=== PATIENT | male | born 1985 | race Caucasian/White ===

== ENCOUNTER 2022-11-08 11:22 | Outpatient (AMB) | payer BC, SELFPAY ==
[2022-11-08 13:31] VITALS: BP 110/62; PULSE 67; TEMP 36.2; O2SAT 98; BMI 30.3
--- NOTE | 2022-11-08 13:31 | MHC.OFFWIV ---
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 Reporting symptoms of sinus congestion, sore throat and difficulty swallowing. Low-grade fever. No family member is sick. No recent travel. Patient reports symptoms of malaise and fatigue. PFSH Social History Patient Tobacco Use Status: Never used Tobacco Physical Exam Vital Signs: Last Vital Signs Temp 97.2 F 11/08/22 13:31 Pulse 67 11/08/22 13:31 BP 110/62 11/08/22 13:31 Pulse Ox 98 11/08/22 13:31 BMI result Body Mass Index 30.3 Const General: cooperative and healthy appearing Nutritional Appearance: well nourished Orientation/consciousness: patient oriented x3 Limitations: no limitations HEENT Head: Yes normal to inspection Eyes General: appearance normal, both eyes and all related structures Neck Neck: Yes normal visual inspection Chest Chest palpation & inspection: normal palpation of entire chest wall Resp Effort & Inspection: normal respiratory effort Neuro General: patient oriented x3 Assessment & Plan Assessment & Plan (1) Upper respiratory tract infection: Code(s): J06.9 - Acute upper respiratory infection, unspecified Plan: Antibiotics ordered. Increase fluid intake. Tylenol for aches and pains. If symptoms worsen, follow-up here for a recheck. Coding Level of Care Code Est Pt Level 3 (76810) Diagnoses Upper respiratory tract infection J06.9
== END 2022-11-08 15:10 | disposition home or self-care (01) ==
PROVIDERS: Visit Provider Internal Medicine
DX: J06.9 Acute upper respiratory infection, unspecified (principal)
CPT/HCPCS: 99213

== ENCOUNTER 2025-01-24 11:29 | Outpatient (REF) | payer OTHER, SELFPAY ==
--- OUTSIDE RECORDS SUMMARY | 2023-03-28 09:00 | XMS_ITS | Continuity of Care Document ---
Author Organization [facility] Address [address] [place] [address] Phone Care Team Providers Care Physical Therapy Coordinator Name Role Phone Derik KLEIN, ILEANA, JOSE, Bro Unavailable U navailable Allergies, Adverse Reactions, Alerts Substance Reaction Status Criticality No Known Allergies Active No Inform ation Medications Medication Instructions Dosage Effective Dates (start - stop) Status Comments No Drug Therapy Prescribed Procedures Procedure Date Duplex Scan-extrem Veins; Uni/ 24 Endovenous Laser, 1st Vein Duplex Scan-extrem Veins; Uni/ Endovenous Laser, 1st Vein Office/Outpt E&M Established 10 Mins - T elemedicine Duplex Scan-extrem Veins; Comp Office/Oupt E&M New Pt 45 Mins Advance Directives Directive Yes / No Effective Date File Name No Information Encounters Encounter Description Practice Location Reason(s) For Visit Diagnoses Date Provider Providers Copied on Encounter [facility], [address], [place], [id number], [place] tel:[phone] [facility] - [facility] Encounter for follow-up examination after completed treatment for conditions other than malignant neVaricose veins of right lower extremity with pain 4 Derik KLEIN, ILEANA, JOSE [place]. [address], [address], [place], [place], [id number] , [place]. tel:[phone] Referring Provider: Dee GARCIA, [address], [place], [address]. tel:[phone] [facility], [address] [place] [address] [address], [id number], [place] tel:[phone] [place] Varicose veins of right lower extremity with other complications 4 Derik KLEIN RVT, JOSE [place]. [address], [address], [place], [id number] , [place]. [phone] Referring Provider: Dee Ruiz MD, FACS T [facility], [facility], [place], [address]. tel:[phone] [facility], [address] [place] [address] Dr [address], [id number], [place] tel:[phone] [facility] [place] Encounter for follow-up examination after completed treatment for conditions other than malignant neVaricose veins of left lower extremity with pain 4 Derik KLEIN RVT, JOSE Bro. [address], [address], [place], [id number] , [place]. tel:[phone] Referring Provider: Dee Ruiz MD, FACS Macho [facility], [facility], [place], [address]. tel:[phone] [facility], [address] [place] [address] [address], [place], [id number], [place] tel:[phone] [facility] [place] Chronic venous hypertension (idiopathic) with inflammation of left lower extremity 3 Derik KLEIN RVT, JOSE [place]. [address], [address], [place], [id number] , [place]. tel:[phone] Referring Provider: Dee RENEET [facility], [facility], [place], [address]. tel:[phone] Office/Outpt E&M Established 10 Mins - Telemedicine [facility], [address] [place] [address] [address], [place], [id number], [place] tel:[phone] [facility] [place] Varicose veins of bilateral lower extremities with pain 3 Joseph KLEIN FACS RVT LIMA Phillips. [address], [address], [place], [address], [place]. tel:[phone] Referring Provider: Dee Ruiz MD, FACS T [facility], [facility], [place], [address]. tel:[phone] [facility], [address] [place] [address] [address], [place], [id number], [place] tel:[phone] [facility] [place] Chronic venous htn w oth comp of bilateral low extrm 3 Joseph KLEIN FACS T LIMA Phillips. [address] [place] [address], [address], [place], [address], [place]. tel:[phone] Referring Provider: Dee Ruiz MD, FACS T [facility], [facility], [place], [address]. tel:[phone] Office/Oupt E&M New Pt 45 Mins [facility], [address] [place] [address] [address], [place], [id number], [place] tel:[phone] [facility] Varicose veins of bi low extrem w oth complicationsC ramp and spasm 3 Derik KLEIN RVT, LIMA [place]. [address], [address], [place], [id number] , [place]. tel:[phone] Referring Provider: Dee Ruiz MD, FACS RVT [facility], [facility], [place], [address]. tel:[phone] Family History Family Member Type Diagnosis Age At Onset No Information Payers Payer name Insurance type Covered democrat ID Authoriza tion(s) No Information Social History Type Description Quantity Date Captured Comments Sex Male Smoking Status No Information Chief Complaint And Reason For Visit No Information Reason For Referral Reason For Referral No Information Plan Of Treatment Date Type Action Status Goal Tobacco cessation counseling completed Goal Diet education completed Referral Ordered: Weight management: Referral to physician timeframe: 3 Months (related to Body mass index (BMI) 26.0-26.9, adult) ordered History Of Present Illness Encounter Date Complaint History Of Prese nt Illness No Information Functional Status Date Functional Assessmen t No Information Medications Administered Medication Instructions Dosage Effective Dates (start - stop) Status Comments No Drug Therapy Prescribed Instructions Date Instruction Additional Infor elian Diet education Related to Body mass index (BMI) 26.0-26.9, adult Giving Encouragement to exercise Related to Body mass index (BMI) 26.0-26.9, adult Lifestyle education Related to B fernando mass index (BMI) 26.0-26.9, adult Patient education booklet given Related to Varicose veins of bi low extrem w oth complications Pre and post instruc tions reviewed and provided Related to Varicose veins of bi low extrem w oth complications Assessments Type Assessment Date No Information Patient Care Teams Name Effective Dates (start - stop) Status Members No Information
--- NOTE | ~2025-01-24 | XR_ITS ---
EXAMINATION: XR FINGER, RIGHT CLINICAL INFORMATION: S61.239A - Puncture wound without foreign body of unspecified finger wit... COMPARISON: None available. TECHNIQUE: Three views of the right third digit. FINDINGS: No fracture, dislocation, or suspicious bone lesion. Normal alignment. Joint spaces are preserved. There is no soft tissue radiopaque foreign body. Soft tissues appear normal. XR/XR finger RT min 2V IMPRESSION: Normal radiographs of the third digit. No radiopaque foreign body. Electronically signed by: Cecil Mark MD 01/24/2025 12:11 PM [email or web address]
== END 2025-01-24 11:30 | disposition home or self-care (01) ==
LOC: HO.HMGCX 11:29
PROVIDERS: PCP Internal Medicine; Visit Provider Physician Assistant
DX: S61.232A Puncture wound without foreign body of right middle finger without damage to nail, initial encounter (principal); X58.XXXA Exposure to other specified factors, initial encounter
CPT/HCPCS: 73140; 90471; 90715

== ENCOUNTER 2025-01-24 11:29 | Outpatient (AMB) | payer OTHER, SELFPAY ==
--- NOTE | 2025-01-24 11:32 | AM.OFFWIN_ITS ---
Intake Vital Signs 01/24/25 11:33 Height 5 ft 3 in Weight 177 lb BMI 31.4 BP 102/58 L Blood Pressure Location Rt brachial Position Sitting Pulse 83 Pulse Source Pulse Oximeter Temp 97.8 F Temp Source Oral Pulse Oximetry (%) 96 Oxygen Delivery Method Room Air Intake Visit Reasons: ep swollen fingers on right hand and pain Intake Note: pt presents with right middle finger pain and swelling for 2-3 days, denies injury Patient Tobacco Use Status: Never used Tobacco Allergies No Known Allergies (No Known Allergies*) Allergy (Verified 01/24/25 11:36) Do you need a note to return to daycare/school/sports/work: Yes Return to daycare/school/sports/work/other note: work HPI HPI Comments History of Present Illness Details History of Present Illness - The patient is a 39-year-old male pres enting with swelling and pain in the 3rd finger of the right hand. - The issue began after the patient chalino chel a splinter from the right hand yesterday. - The patient reports significant swelli ng and tenderness in the affected area. - There is a concern for infection due t o the retained splinter, as indicated by the swelling and tenderness. - The patient has not had a tetanus perry ter in over 10 years. Review of Systems - Musculoskeletal: Reports swelling and pain in the right hand, particularly the third digit. All systems reviewed and are unremarkable except as noted in HPI Physical Exam General: Cooperative, healthy appearing, comfortable, no acute distress and well developed Orientation: Patient oriented x3 Limitations: No limitations Head: Normal to inspection Ears: Hearing grossly normal bilaterally Nose: Normal External nose present Face and sinus: Normal facial exam Eyes: Appearance normal, both eyes and all related structures Neck: Normal visual inspection and Yes full ROM Respiratory: Normal respiratory effort and able to speak in complete sentences. Skin: No rashes or lesions noted Neuro: Patient oriented x3 Extremities: right hand, 3rd digit, DIP with edema and erythema, TTP, full ROM and NVI. [facility] Social History (System 05/03/23 @ 14:36 by Sandra Sawyer) Patient Tobacco Use Status: Never used Tobacco Physical Exam Vital Signs: Last Vital Signs Temp 97.8 F 01/24/25 11:33 Pulse 83 01/24/25 11:33 BP 102/58 L 01/24/25 11:33 Pulse Ox 96 01/24/25 11:33 Oxygen Delivery Method Room Air 01/24/25 11:33 BMI result Body Mass Index 31.4 Assessment & Plan Assessment & Plan (1) Penetrating finger wound: Code(s): S61.239A - Puncture wound without foreign body of unspecified finger without damage to nail, initial encounter Qualifiers: Encounter type: initial encounter Qualified Code(s): S61.239A - Puncture wound without foreign body of unspecified finger without damage to nail, initial encounter Plan: Patient was informed and verbally consented to the use of an ambient scribe for clinic note documentation during this visit. - Plan to obtain an x-ray to rule out any retained foreign body. - Prescribe antibiotics to address potential infection. Sent Augmentin x7 days. - Administer tetanus prophylaxis due to potential exposure from the splinter. - If pain gets worse, fevers develop or discharge develops, please return to the clinic or see your PCP, may need Hand Ortho referral. Orders: Orders TDaP Immunization Today S61.239A - Puncture wound without foreign body of unspecified finger without damage to nail, initial encounter XR finger RT min 2V Today S61.239A - Puncture wound without foreign body of unspecified finger without damage to nail, initial encounter Medications: New amoxicillin-pot clavulanate 875-125 mg 1 tab PO Q12H 14 tabs 0RF Boostrix Tdap (diphth,pertus(acell),tetanus) 0.5 mL IM ONCE 0.5 mL 0RF NS S61.239A - Puncture wound without foreign body of unspecified finger without damage to nail, initial encounter Coding Level of Care Code Est Pt Level 4 (07150) Diagnoses Penetrating wound of finger, initial encounter S61.239A Encounter type: initial encounter
[2025-01-24 11:33] VITALS: BP 102/58; PULSE 83; TEMP 36.6; O2SAT 96; BMI 31.4
== END 2025-01-24 12:15 | disposition home or self-care (01) ==
PROVIDERS: PCP Internal Medicine; Visit Provider Physician Assistant
DX: S61.239A Puncture wound without foreign body of unspecified finger without damage to nail, initial encounter (principal)

== ENCOUNTER → 2025-01-24 11:59 | Outpatient (BNV) | payer OTHER, SELFPAY | PROVIDERS: PCP Internal Medicine; Visit Provider Radiology Diagnostic Radiology | DX: S61.232A Puncture wound without foreign body of right middle finger without damage to nail, initial encounter (principal) | CPT/HCPCS: 73140 ==